=== PATIENT | female | born 1965 | race African-American/Black ===

== ENCOUNTER 2023-01-07 22:45 | Emergency (ER) | payer SELFPAY ==
[~2023-01-07] VITALS: Ht 170.2 cm; Wt 92.0 kg
[2023-01-07 22:48] VITALS: BP 162/88
== END 2023-01-08 02:37 | disposition left against medical advice (07) ==
LOC: ER 22:45
DX: R06.02 Shortness of breath (principal); Z53.21 Procedure and treatment not carried out due to patient leaving prior to being seen by health care provider
CPT/HCPCS: 99281